=== PATIENT | male | born 1945 | race Two or more races ===

== ENCOUNTER 2017-02-19 09:10 | Inpatient (IN) | payer OTHER, BC ==
[~2017-02-19] VITALS: Ht 167.6 cm; Wt 74.2 kg
[2017-02-19 10:01] LABS: HEMATOCRIT 35.1 % (38.0-50.0); MCHC 34.5 G/DL (30.0-36.0); MCV 95.6 FL (86-99); MEAN PLAT.VOLUME 8.8 uM^3 (9.0-12.4); PLATELET COUNT 130 K/uL (156-360); RBC DIS.WIDTH-CV 11.9 % (11.8-14.6); RED BLOOD COUNT 3.67 M/uL (4.00-5.50); WHITE BLOOD COUNT 10.5 K/uL (4.1-10.2)
[2017-02-19 10:10] LABS: CHLORIDE 110 mEq/L (99-109); POTASSIUM 4.8 mEq/L (3.7-5.4); SODIUM 141 mEq/L (136-147)
[2017-02-19 10:12] LABS: GLUCOSE 114 mg/dL (70-99)
[2017-02-19 10:14] LABS: ANION GAP 10 MEQ/L (2-14); TOTAL BILIRUBIN 0.7 mg/dL (0.0-1.0)
[2017-02-19 10:16] LABS: ALKALINE PHOSPHATASE 85 IU/L (3-129); GFR ESTIMATE (CALCULATED) 16 mL/min/
[2017-02-19 10:17] LABS: UREA NITROGEN (BUN) 36 mg/dL (9-23)
[2017-02-19 11:38] LABS: ADD MIUA? YES; BILIRUBIN NEGATIVE; BLOOD MODERATE; COLOR YELLOW ((YELLOW)); GLUCOSE (STRIP) 50; KETONES NEGATIVE; LEUKOCYTES NEGATIVE; NITRITE NEGATIVE; PROTEIN (STRIP) 30; UROBILINOGEN 0.2 MG/DL (0.2-1.0)
[2017-02-19 11:42] LABS: BACTERIA NONE SEEN /HPF; EPITHELIAL CELLS NONE SEEN /HPF; HYALINE CASTS 0-5 /LPF; MUCUS TRACE /LPF; RED BLOOD CELLS 40-50 /HPF (0-5); UCUL ADDED? NO
[2017-02-19] MEDS ORDERED: ARMODAFINIL250 MG PO (14:13)
[2017-02-19] MEDS ORDERED: TRAMADOL HCL50 MG PO (14:13)
[2017-02-19] MEDS ORDERED: CYMBALTA30 MG PO (14:13)
[2017-02-19] MEDS ORDERED: LIPITOR80 MG PO (14:13)
[2017-02-19] MEDS ORDERED: TIZANIDINE HCL2 M1 PO (14:14)
[2017-02-19] MEDS ORDERED: METOPROLOL SUCC50 MG PO (14:14)
[2017-02-19] MEDS ORDERED: MYRBETRIQ50 MG PO (14:14)
[2017-02-19] MEDS ORDERED: FLOMAX0.4 MG PO (14:14)
[2017-02-19] MEDS ORDERED: LO-DOSE ASPIRIN81 M2 PO (14:15)
[2017-02-19] MEDS ORDERED: CYANOCOBALAM1000 MCG PO (14:16)
[2017-02-19] MEDS ORDERED: VITAMIN D31000 UNIT PO (14:16)
[2017-02-19] MEDS ORDERED: COLACE100 MG PO (14:16)
[2017-02-19] MEDS ORDERED: DAILY VITE1 EAC1 PO (14:17)
[2017-02-19] MEDS ORDERED: DIAZEPAM2 MG PO (14:17)
[2017-02-19] MEDS ORDERED: LIDODERM 5% P1 PATCH TD (14:17)
[2017-02-19] MEDS ORDERED: POTASSIUM CITR10 MEQ PO (14:17)
[2017-02-19 15:55] VITALS: BP 146/60
[2017-02-19 23:42] VITALS: BP 132/60
[2017-02-20 03:24] VITALS: BP 138/62
[2017-02-20 05:45] LABS: ANION GAP 6 MEQ/L (2-14); CHLORIDE 111 MEQ/L (99-109); GFR ESTIMATE (CALCULATED) 13 mL/min/; GLUCOSE 95 mg/dL (70-99); POTASSIUM 4.8 MEQ/L (3.7-5.4); SAMPLE HEMOLYSIS CHECK 0; SAMPLE ICTERIC CHECK 0; SAMPLE LIPEMIA CHECK 0; SODIUM 139 MEQ/L (136-147); UREA NITROGEN (BUN) 45 mg/dL (9-23)
[2017-02-20 07:00] VITALS: BP 134/63
[2017-02-20 12:00] VITALS: BP 136/63
[2017-02-20 13:00] LABS: ANION GAP 6 MEQ/L (2-14); CHLORIDE 112 MEQ/L (99-109); GFR ESTIMATE (CALCULATED) 12 mL/min/; GLUCOSE 85 mg/dL (70-99); POTASSIUM 4.7 MEQ/L (3.7-5.4); SAMPLE HEMOLYSIS CHECK 0; SAMPLE ICTERIC CHECK 0; SAMPLE LIPEMIA CHECK 0; SODIUM 138 MEQ/L (136-147); UREA NITROGEN (BUN) 45 mg/dL (9-23)
[2017-02-20 15:55] VITALS: BP 157/70
[2017-02-20 20:00] VITALS: BP 154/69
[2017-02-21] VITALS (7 sets, daily range): BP systolic 130–179; BP diastolic 62–75
[2017-02-21 06:40] LABS: HEMATOCRIT 28.4 % (38.0-50.0); MCH 33.9 PG (29.0-34.0); MCHC 34.5 G/DL (30.0-36.0); MCV 98.3 FL (86-99); RBC DIS.WIDTH-CV 11.8 % (11.8-14.6); RBC DIS.WIDTH-SD 42.6 % (39-53); WHITE BLOOD COUNT 7.7 K/uL (4.1-10.2)
[2017-02-21 06:42] LABS: RED BLOOD COUNT 2.89 M/uL (4.00-5.50)
[2017-02-21 06:59] LABS: ANION GAP 6 MEQ/L (2-14); CHLORIDE 111 MEQ/L (99-109); GFR ESTIMATE (CALCULATED) 11 mL/min/; GLUCOSE 97 mg/dL (70-99); POTASSIUM 4.8 MEQ/L (3.7-5.4); SAMPLE HEMOLYSIS CHECK 0; SAMPLE ICTERIC CHECK 0; SAMPLE LIPEMIA CHECK 0; SODIUM 137 MEQ/L (136-147); UREA NITROGEN (BUN) 47 mg/dL (9-23)
[2017-02-21 07:25] LABS: MEAN PLAT.VOLUME 8.8 uM^3 (9.0-12.4); PLAT.SUFFICIENCY DECREASED; PLATELET COUNT 85 K/uL (156-360)
[2017-02-21 13:20] LABS: ADD MIUA? YES; BILIRUBIN NEGATIVE; BLOOD SMALL; COLOR STRAW ((YELLOW)); GLUCOSE (STRIP) 50; KETONES NEGATIVE; LEUKOCYTES NEGATIVE; NITRITE NEGATIVE; PROTEIN (STRIP) NEGATIVE; SPECIFIC GRAVITY 1.006 (1.000-1.030); UROBILINOGEN 0.2 MG/DL (0.2-1.0)
[2017-02-21 13:37] LABS: BACTERIA RARE /HPF; EPITHELIAL CELLS RARE /HPF; MUCUS TRACE /LPF; RED BLOOD CELLS 0-5 /HPF (0-5); WHITE BLOOD CELLS 0-5 /HPF (0-5)
[2017-02-21 13:43] LABS: UR CREATININE CONCENTRATION 56.2 MG/DL
[2017-02-22] VITALS (8 sets, daily range): BP systolic 133–189; BP diastolic 64–83
[2017-02-22 07:05] LABS: EOSINOPHIL (%) 0 % (0-5); HEMATOCRIT 27.9 % (38.0-50.0); IMMATURE GRANULOCYTE (%) 0.5 % (0.0-0.7); INSTRUMENT ABS NEUTROPHIL CT 4.8 K/uL; LYMPHOCYTE COUNT 0.5 K/uL (1.0-2.8); MCH 33.9 PG (29.0-34.0); MCHC 34.4 G/DL (30.0-36.0); MCV 98.6 FL (86-99); MEAN PLAT.VOLUME 9.2 uM^3 (9.0-12.4); MONOCYTE (%) 5.8 % (3-12); MONOCYTE COUNT 0.3 K/uL (0-0.8); NEUTROPHIL (%) 84.5 % (45-76); NEUTROPHIL COUNT 4.8 K/uL (1.8-6.4); PLATELET COUNT 97 K/uL (156-360); RBC DIS.WIDTH-CV 11.8 % (11.8-14.6); RBC DIS.WIDTH-SD 42.8 % (39-53); RED BLOOD COUNT 2.83 M/uL (4.00-5.50); WHITE BLOOD COUNT 5.7 K/uL (4.1-10.2)
[2017-02-22 07:40] LABS: ANION GAP 9 MEQ/L (2-14); CHLORIDE 113 MEQ/L (99-109); GFR ESTIMATE (CALCULATED) 10 mL/min/; GLUCOSE 122 mg/dL (70-99); POTASSIUM 5.1 MEQ/L (3.7-5.4); SAMPLE HEMOLYSIS CHECK 0; SAMPLE ICTERIC CHECK 0; SAMPLE LIPEMIA CHECK 0; SODIUM 140 MEQ/L (136-147); UREA NITROGEN (BUN) 50 mg/dL (9-23); URIC ACID 4.6 mg/dL (3.1-9.2)
[2017-02-23 04:10] VITALS: BP 149/71
[2017-02-23 06:29] LABS: EOSINOPHIL (%) 3.1 % (0-5); EOSINOPHIL COUNT 0.2 K/uL (0-0.3); HEMATOCRIT 27.7 % (38.0-50.0); IMMATURE GRANULOCYTE (%) 0.5 % (0.0-0.7); INSTRUMENT ABS NEUTROPHIL CT 5.1 K/uL; LYMPHOCYTE COUNT 1.5 K/uL (1.0-2.8); MCH 33.1 PG (29.0-34.0); MCHC 33.6 G/DL (30.0-36.0); MCV 98.6 FL (86-99); MEAN PLAT.VOLUME 8.9 uM^3 (9.0-12.4); MONOCYTE (%) 6.6 % (3-12); MONOCYTE COUNT 0.5 K/uL (0-0.8); NEUTROPHIL (%) 68.5 % (45-76); NEUTROPHIL COUNT 5.1 K/uL (1.8-6.4); PLATELET COUNT 99 K/uL (156-360); RBC DIS.WIDTH-CV 11.9 % (11.8-14.6); RBC DIS.WIDTH-SD 43.5 % (39-53); RED BLOOD COUNT 2.81 M/uL (4.00-5.50); WHITE BLOOD COUNT 7.4 K/uL (4.1-10.2)
[2017-02-23 06:58] LABS: ANION GAP 11 MEQ/L (2-14); CHLORIDE 113 MEQ/L (99-109); CREATINE KINASE 74 IU/L (1-294); GFR ESTIMATE (CALCULATED) 11 mL/min/; GLUCOSE 90 mg/dL (70-99); POTASSIUM 4.4 MEQ/L (3.7-5.4); SAMPLE HEMOLYSIS CHECK 0; SAMPLE ICTERIC CHECK 0; SAMPLE LIPEMIA CHECK 0; SODIUM 142 MEQ/L (136-147); UREA NITROGEN (BUN) 47 mg/dL (9-23)
[2017-02-23 07:37] VITALS: BP 182/89
[2017-02-23 11:44] VITALS: BP 173/74
[2017-02-23 18:21] VITALS: BP 169/74
[2017-02-23 19:40] VITALS: BP 166/73
[2017-02-23 23:39] VITALS: BP 163/73
[2017-02-24 03:30] VITALS: BP 167/77
[2017-02-24 06:08] LABS: EOSINOPHIL (%) 4.5 % (0-5); EOSINOPHIL COUNT 0.2 K/uL (0-0.3); HEMATOCRIT 29.3 % (38.0-50.0); IMMATURE GRANULOCYTE (%) 0.4 % (0.0-0.7); INSTRUMENT ABS NEUTROPHIL CT 3.3 K/uL; LYMPHOCYTE COUNT 1.1 K/uL (1.0-2.8); MCH 33.8 PG (29.0-34.0); MCHC 34.5 G/DL (30.0-36.0); MONOCYTE (%) 7.5 % (3-12); MONOCYTE COUNT 0.4 K/uL (0-0.8); NEUTROPHIL (%) 64.8 % (45-76); NEUTROPHIL COUNT 3.3 K/uL (1.8-6.4); PLATELET COUNT 123 K/uL (156-360); RBC DIS.WIDTH-CV 11.9 % (11.8-14.6); RBC DIS.WIDTH-SD 42.3 % (39-53); RED BLOOD COUNT 2.99 M/uL (4.00-5.50); WHITE BLOOD COUNT 5.1 K/uL (4.1-10.2)
[2017-02-24 06:33] LABS: ANION GAP 10 MEQ/L (2-14); CHLORIDE 110 MEQ/L (99-109); GFR ESTIMATE (CALCULATED) 12 mL/min/; GLUCOSE 87 mg/dL (70-99); IRON 59 MCG/DL (35-150); POTASSIUM 4.3 MEQ/L (3.7-5.4); SAMPLE HEMOLYSIS CHECK 0; SAMPLE ICTERIC CHECK 0; SAMPLE LIPEMIA CHECK 0; SODIUM 141 MEQ/L (136-147); UREA NITROGEN (BUN) 43 mg/dL (9-23)
[2017-02-24 08:07] LABS: FERRITIN 104 NG/ML (22-322)
[2017-02-24 08:22] VITALS: BP 167/77
[2017-02-24] MEDS ORDERED: AMLODIPINE BESYL5 MG PO (11:40)
== END 2017-02-24 13:26 | disposition home or self-care (01) | DRG 684 ==
LOC: EME 09:10 → EDOF 13:13 → 5WEST 15:39 → 5SOUTH 02-21 08:34 → 5WEST 02-21 08:34 → 5SOUTH 02-21 23:46
PROVIDERS: Emergency Medicine; Internal Medicine; Internal Medicine Nephrology; Nurse Practitioner Family
DX: N17.9 Acute kidney failure, unspecified (principal); N18.4 Chronic kidney disease, stage 4 (severe); Z87.442 Personal history of urinary calculi; I25.10 Atherosclerotic heart disease of native coronary artery without angina pectoris; Z95.1 Presence of aortocoronary bypass graft; I12.9 Hypertensive chronic kidney disease with stage 1 through stage 4 chronic kidney disease, or unspecified chronic kidney disease; E66.3 Overweight; Z68.26 Body mass index [BMI] 26.0-26.9, adult; E11.22 Type 2 diabetes mellitus with diabetic chronic kidney disease; D64.9 Anemia, unspecified; D69.6 Thrombocytopenia, unspecified
CPT/HCPCS: 74176; 80048; 80048 91; 80053; 80069; 81003; 82550; 82570; 82607; 82728; 83540; 83605; 84300; 84466; 84550; 85025; 85027; 87040; 87086; 93971; 99281; 99285; C1758; C1876; G0378; J0696; J1100; J1644; J1885; J2270; J2405; J3010; J7030; J7040; J7050